=== PATIENT | male | born 1960 | race Caucasian/White ===

== ENCOUNTER → 2018-06-19 15:24 | Outpatient (CLI) | payer OTHER, SELFPAY ==
[2018-06-19 15:43] LABS: Hemoglobin 17.7 g/dL (13.5-17.5)
[2018-06-19 15:49] LABS: Hematocrit 50.6 % (41-53); Mean Corpuscular Hemoglobin 30.8 PG (26-34); Platelet Count 254 X10^3/uL (150-400); Red Blood Cell Count 5.76 X10^6/uL (4.5-5.9); Red Cell Distribution Width 12.5 % (11.6-14.8); White Blood Cell Count 6.2 X10^3/uL (4.5-11.0)
[2018-06-19 16:43] LABS: Vitamin D 25 Hydroxy (D3) 77.7 ng/mL (30.0-100.0)
[2018-06-19 16:56] LABS: Prostate Specific Antigen Scrn 0.698 ng/mL (0.1-4.0)
== END ==
PROVIDERS: Family Provider Family Medicine; PCP Student in an Organized Health Care Education/Training Program; Visit Provider Student in an Organized Health Care Education/Training Program
DX: E55.9 Vitamin D deficiency, unspecified (principal); D75.1 Secondary polycythemia; Z12.5 Encounter for screening for malignant neoplasm of prostate
CPT/HCPCS: 36415; 82306; 85027; G0103

== ENCOUNTER → 2019-11-24 15:41 | Outpatient (CLI) | payer OTHER, SELFPAY ==
[2019-11-24 16:52] LABS: BUN Creatinine Ratio 18.3 (6-22); Blood Urea Nitrogen 19 mg/dL (9-20); Calcium 9.4 mg/dL (8.4-10.2); Carbon Dioxide 24 mmol/L (22-32); Chloride 106 mmol/L (98-107); Cholesterol 139 mg/dL (140-199); Estimated Glomerular Filt Rate > 60.0 mL/min (>60); Glucose 94 mg/dL (80-110); HDL Cholesterol 37 mg/dL (40-60); HEMOLYSIS < 15 (0-50); LDL Cholesterol Calculated 78 mg/dL (<100); Potassium 4.6 mmol/L (3.4-5.1); Sodium 137 mmol/L (137-145); Triglycerides 121 mg/dL (35-150)
== END ==
PROVIDERS: PCP Student in an Organized Health Care Education/Training Program; Referring Provider Student in an Organized Health Care Education/Training Program; Visit Provider Student in an Organized Health Care Education/Training Program
DX: E78.5 Hyperlipidemia, unspecified (principal); I10 Essential (primary) hypertension
CPT/HCPCS: 36415; 80048; 80061

== ENCOUNTER → 2020-02-12 15:11 | Outpatient (CLI) | payer OTHER, SELFPAY ==
[2020-02-14 09:31] LABS: COVID19 Sendout Not Detected (Not Detect)
== END ==
PROVIDERS: PCP Student in an Organized Health Care Education/Training Program; Visit Provider Physician Assistant
DX: Z11.59 Encounter for screening for other viral diseases (principal)
CPT/HCPCS: 87635

== ENCOUNTER 2020-02-15 09:35 | Day surgery (SDC) | payer OTHER, SELFPAY ==
[2020-02-15 10:02] VITALS: BMI 25.1
[2020-02-15] MEDS: LACTATED RINGERS 1,000 ML 200 ML IV (10:21)
[2020-02-15 10:23] VITALS: BP 122/85; PULSE 77; RESP 16; TEMP 36.2; O2SAT 99
--- NOTE | 2020-02-15 11:19 | PM.HP.1 ---
History of Present Illness History of Present Illness Date Patient Seen: 02/15/20 Time Patient Seen: 11:20 Chief complaint: TXC Narrative: The patient presents for colorectal sreening. He had a previous colonoscopy 5 years ago that demonstrated an adenomatous polyp which was removed.. No personal or family history of colon cancer. On further history denies any recent gastrointestinal symptoms. No nausea, vomiting, abdominal pain, loss of appetite, unexplained weight loss, change in bowel habits, diarrhea, constipation, melena, hematochezia, or bright red blood per rectum He has a pacemaker but he is not pacemaker dependent. Patient History Medical History Acne (Chronic 1974) CAD (coronary artery disease) (Chronic 2008) Chicken pox (Resolved 1965) Colitis (Chronic 1982) Hayfever (Chronic 1973) Hypertension (Chronic 2005) IBS (irritable bowel syndrome) (Chronic 1982) Mumps (Resolved 1967) Pacemaker (Chronic 2008) Rosacea (Chronic 2008) Ventricular fibrillation (Chronic 2008) Surgical History Anesthesia (Resolved) History of angioplasty (Resolved 2008) Implantable cardioverter-defibrillator (ICD) in situ (Resolved 2008) Status post repair of hydrocele (Resolved 1987) Family & Social History Family History Brother Age: 78 Diabetes mellitus Brother Age: 75 Diabetes mellitus Heart disease Hypertension High cholesterol Wheelchair bound Child Age: 23 ADHD (attention deficit hyperactivity disorder) Child Age: 21 ADHD (attention deficit hyperactivity disorder) Child Age: 18 ADHD (attention deficit hyperactivity disorder) Father Diabetes mellitus Heart disease Hypertension Stroke Mother Hypertension Social History: household members spouse Tobacco & Substance use: Smoking Status Never smoker alcohol intake frequency 3 or more drinks per day Substance Use Type does not use Meds Home Medications and Allergies Home Medications Medication Instructions Recorded Confirmed Type [CALCIUM] Q DAY #0 01/31/12 11/24/19 History [VITAMIN D3] 1 tab PO Q DAY #0 01/31/12 02/15/20 History cetirizine 5 mg PO DAILY #0 01/31/12 02/15/20 History cyanocobalamin (vitamin B-12) 500 mcg PO QDAY #0 tab 02/17/16 02/15/20 History [Vitamin B-12] omeprazole 20 mg capsule,delayed 20 mg PO HS #90 cap 11/25/19 11/25/19 Rx release atorvastatin 40 mg tablet 40 mg PO HS #90 tab 12/01/19 02/15/20 Rx metoprolol succinate 50 mg See Rx Instructions .ROUTE 12/01/19 02/15/20 Rx tablet,extended release 24 hr .COMPLEX #180 tab lisinopril 10 mg tablet 10 mg PO DAILY #90 tab 12/21/19 02/15/20 Rx Allergies Allergy/AdvReac Type Severity Reaction Status Date / Time Penicillins [PENICILLINS] AdvReac Unknown HIVES Verified 11/24/19 14:58 Review of Systems Review of Systems Narrative: A 10 point review of systems is negative except as noted in the HPI Exam Vital Signs (past 8 hours): - 02/15/20 10:23 Temperature 97.1 F L Pulse Rate 77 Respiratory Rate 16 Blood Pressure 122/85 Pulse Oximetry 99 Oxygen Delivery Method Room Air Narrative Exam Narrative: General-no acute distress, well nourished HEENT-moist mucous membranes, no scleral icterus Neck-supple, no lymphadenopathy Chest- non labored respirations, clear to auscultation bilaterally Cardiac-regular rate no peripheral edema Abdomen-soft, nontender, non distended Extremities-warm, well perfused Neurological-alert and oriented, no focal deficits Assessment & Plan Assessment & Plan narrative: The patient requires colorectal screening and colonoscopy is recommended. Technical details were discussed. Risks, benefits, alternatives explained. Risks including but not limited to myocardial infarction, aspiration, bleeding, pain, missed lesion, incomplete examination, need for further radiographic studies, colonic perforation, and need for major abdominal surgery were discussed. All questions were answered to their satisfaction, and they are in agreement with this plan.
[2020-02-15] MEDS: fentaNYL 250 MCG/5 ML INJ IV (11:29)
[2020-02-15] MEDS: MIDAZOLAM 5 MG/5 ML VIAL IV (11:29)
--- NOTE | 2020-02-15 11:43 | PM.OP.ENDO ---
Operative Date/Time/Diagnoses Date of procedure: 02/15/20 Time of procedure: 11:43 Pre-op diagnosis: Screening colonoscopy Post-op diagnosis: same Procedure & Clinicians Study performed: Colonoscopy Same procedure as scheduled: Yes Indications: 59-year-old man history of adenomatous polyps here for routine screening Surgeon: Dhruv Lopez Procedure Notes SCOAP/Timeout: Performed Procedure in detail: Patient placed in left lateral recumbent position. Time out was performed. Procedural sedation was administered with Versed and Fentanyl. Examination began with a thorough inspection of the perianal area there was no evidence of fissures, fistulae, external hemorrhoids or cutaneous malignancy. The colonoscopy scope was then placed into the rectum the the lumen was insufflated with air. The scope was carefully advanced forward. Ultimately the cecum was intubated and confirmed by identification of the ileocecal valve, the appendiceal orifice and the confluence of the taenia. The scope was then slowly withdrawn examining colon thoroughly in all directions. In the rectum the rectal columns were identified and retroflexion of the scope was performed for inspection of the distal rectum and anal canal. The colonoscopy was notable for the followin. Quality of the preparation-good 2. No masses or polyps 3. Grade 1 internal hemorrhoids Scope withdrawal time: 6 Sedation minutes: 17 Findings: internal hemorrhoids Specimen(s): none sent Complications: none Impression: Normal colonoscopy Post-procedure Recommendations: Colonscopy in 10 years Disposition: same day surgery
[2020-02-15 11:48] VITALS: BP 97/67; PULSE 72; RESP 14; TEMP 36.2; O2SAT 96
[2020-02-15 11:53] VITALS: BP 96/69; PULSE 74; RESP 15; O2SAT 95
[2020-02-15 12:03] VITALS: BP 113/81; PULSE 80; RESP 18; O2SAT 98
[2020-02-15 12:09] VITALS: BP 116/81; PULSE 83; RESP 14; TEMP 36.6; O2SAT 98
[2020-02-15 12:15] VITALS: BP 116/83; PULSE 76; RESP 12; TEMP 36.6; O2SAT 98
== END 2020-02-15 12:30 | disposition home or self-care (01) ==
PROVIDERS: PCP Student in an Organized Health Care Education/Training Program; Referring Provider Surgery; Visit Provider Surgery
PROC: 0DJD8ZZ Inspection of Lower Intestinal Tract, Via Natural or Artificial Opening Endoscopic (ICD-10-PCS; CPT 45378; principal; 2020-02-15 10:45)
DX: Z12.11 Encounter for screening for malignant neoplasm of colon (principal); K64.0 First degree hemorrhoids
CPT/HCPCS: 45378; 99152; J2250; J3010

== ENCOUNTER → 2021-04-20 16:48 | Outpatient (CLI) | payer OTHER, SELFPAY ==
[2021-04-20 17:18] LABS: Hemoglobin 16.7 g/dL (13.5-17.5); Mean Corpuscular HGB Conc 34.8 % (30-36); Mean Corpuscular Hemoglobin 31.2 PG (26-34); Mean Corpuscular Volume 89.9 fL (80-100); Platelet Count 233 X10^3/uL (150-400); Red Blood Cell Count 5.34 X10^6/uL (4.5-5.9); Red Cell Distribution Width 12.5 % (11.6-14.8); White Blood Cell Count 6.1 X10^3/uL (4.5-11.0)
[2021-04-20 18:31] LABS: BUN Creatinine Ratio 19.1 (6-22); Blood Urea Nitrogen 18 mg/dL (9-20); Calcium 9.8 mg/dL (8.4-10.2); Carbon Dioxide 28 mmol/L (22-32); Chloride 102 mmol/L (98-107); Estimated Glomerular Filt Rate > 60.0 mL/min (>60); Glucose 88 mg/dL (80-110); HEMOLYSIS < 15 (0-50); Potassium 4.1 mmol/L (3.4-5.1); Sodium 139 mmol/L (137-145)
[2021-04-20 19:02] LABS: Prostate Specific Antigen Scrn 0.651 ng/mL (0.1-4.0)
== END ==
PROVIDERS: PCP Student in an Organized Health Care Education/Training Program; Referring Provider Student in an Organized Health Care Education/Training Program; Visit Provider Student in an Organized Health Care Education/Training Program
DX: D75.1 Secondary polycythemia (principal); I10 Essential (primary) hypertension; Z12.5 Encounter for screening for malignant neoplasm of prostate
CPT/HCPCS: 36415; 80048; 85027; G0103

== ENCOUNTER → 2022-03-19 15:48 | Outpatient (CLI) | payer OTHER, SELFPAY ==
--- NOTE | 2022-03-19 | DI.RAD.S_ITS ---
PROCEDURE: XR CHEST 2V INDICATIONS: PACE MAKER ENCOUNTER TECHNIQUE: 2 views of the chest were acquired. COMPARISON: None. FINDINGS: Surgical changes and devices: Left chest wall pulse generator with dual-chamber electrode leads in place. Lungs and pleura: Lung volumes are slightly low. No dense consolidation or pleural effusion. Mediastinum: Heart size is within normal limits. Bones and chest wall: No acute or suspicious osseous abnormality. IMPRESSION: Lung volumes are slightly low. No acute radiographic abnormality. Left chest wall pulse generator with dual-chamber electrode leads in place. Dictated by: Erasmo Boucher M.D. on 03/19/2022 at 17:10 Approved by: Erasmo Boucher M.D. on 03/19/2022 at 17:11
[2022-03-19 18:27] LABS: Add Manual Diff / Slide Review NO; Basophils Absolute Auto 0 /uL (0-100); Basophils Percent Auto 0.5 % (0-2); Eosinophils Absolute Auto 200 /uL (0-450); Eosinophils Percent Auto 2.2 % (2-4); Hematocrit 47.5 % (41-53); Hemoglobin 16.5 g/dL (13.5-17.5); Lymphocytes Absolute Auto 1500 /uL (1100-4500); Lymphocytes Percent Auto 18.2 % (25-40); Mean Corpuscular HGB Conc 34.6 % (30-36); Mean Corpuscular Hemoglobin 30.6 PG (26-34); Mean Corpuscular Volume 88.4 fL (80-100); Monocytes Absolute Auto 800 /uL (0-900); Monocytes Percent Auto 9.2 % (3-14); Neutrophils Absolute Auto 5900 /uL (1500-7000); Neutrophils Percent Auto 69.9 % (50-75); Platelet Count 260 X10^3/uL (150-400); Red Blood Cell Count 5.38 X10^6/uL (4.5-5.9); White Blood Cell Count 8.4 X10^3/uL (4.5-11.0)
[2022-03-19 18:39] LABS: Alanine Aminotransferase 39 IU/L (<50); Albumin 4.2 g/dL (3.5-5.0); Albumin Globulin Ratio 1.2 (1.0-2.8); Alkaline Phosphatase 86 U/L (38-126); Aspartate Aminotransferase 32 IU/L (17-59); BUN Creatinine Ratio 17.3 (6-22); Bilirubin Total 0.7 mg/dL (0.2-1.3); Blood Urea Nitrogen 17 mg/dL (9-20); C-Reactive Protein Quant < 0.5 mg/dL (<1.0); Calcium 9.2 mg/dL (8.4-10.2); Carbon Dioxide 27 mmol/L (22-32); Chloride 102 mmol/L (98-107); Estimated Glomerular Filt Rate > 60 mL/min (>60); Globulin 3.6 g/dL (1.7-4.1); Glucose 97 mg/dL (80-110); HEMOLYSIS < 15 (0-50); Potassium 4.6 mmol/L (3.4-5.1); Sodium 139 mmol/L (137-145); Total Protein 7.8 g/dL (6.3-8.2)
== END ==
PROVIDERS: PCP Student in an Organized Health Care Education/Training Program; Referring Provider Nurse Practitioner; Visit Provider Nurse Practitioner
DX: T82.9XXD Unspecified complication of cardiac and vascular prosthetic device, implant and graft, subsequent encounter (principal)
CPT/HCPCS: 36415; 71046; 80053; 85025; 86140; 87040

== ENCOUNTER → 2022-07-20 16:24 | Outpatient (CLI) | payer OTHER, SELFPAY ==
[2022-07-20 16:54] LABS: Cholesterol 137 mg/dL (140-199); HDL Cholesterol 38 mg/dL (40-60); LDL Cholesterol Calculated 85 mg/dL (<100); Triglycerides 70 mg/dL (35-150)
[2022-07-20 17:39] LABS: Creatinine Urine Random 49.5 mg/dL
[2022-07-20 17:40] LABS: TSH w/ Reflex to FT4 1.29 uIU/mL (0.47-4.68)
[2022-07-20 17:51] LABS: Microalbumin Urine Random < 0.6 mg/dL (0-1.6)
[2022-07-26 21:11] LABS: Prostate Specific Antigen Scrn 0.684 ng/mL (0.1-4.0)
== END ==
PROVIDERS: PCP Family Medicine; Referring Provider Family Medicine; Visit Provider Family Medicine
DX: E78.5 Hyperlipidemia, unspecified (principal); I10 Essential (primary) hypertension; I25.10 Atherosclerotic heart disease of native coronary artery without angina pectoris; M62.838 Other muscle spasm; Z12.5 Encounter for screening for malignant neoplasm of prostate
CPT/HCPCS: 36415; 80061; 82043; 82570; 84443; G0103

== ENCOUNTER → 2023-08-16 17:12 | Outpatient (CLI) | payer OTHER, SELFPAY ==
[2023-08-16 18:23] LABS: Add Manual Diff / Slide Review NO; Basophils Absolute Auto 0 /uL (0-100); Basophils Percent Auto 0.4 % (0-2); Eosinophils Absolute Auto 200 /uL (0-450); Eosinophils Percent Auto 1.8 % (2-4); Hemoglobin 17.3 g/dL (13.5-17.5); Lymphocytes Absolute Auto 1600 /uL (1100-4500); Lymphocytes Percent Auto 16.5 % (25-40); Mean Corpuscular HGB Conc 34.6 % (30-36); Mean Corpuscular Hemoglobin 31.6 PG (26-34); Mean Corpuscular Volume 91.2 fL (80-100); Monocytes Absolute Auto 700 /uL (0-900); Monocytes Percent Auto 7.9 % (3-14); Neutrophils Absolute Auto 7000 /uL (1500-7000); Neutrophils Percent Auto 73.4 % (50-75); Platelet Count 218 X10^3/uL (150-400); Red Blood Cell Count 5.49 X10^6/uL (4.5-5.9); Red Cell Distribution Width 12.9 % (11.6-14.8); White Blood Cell Count 9.5 X10^3/uL (4.5-11.0)
[2023-08-16 18:37] LABS: Alanine Aminotransferase 47 IU/L (<50); Albumin 4.3 g/dL (3.5-5.0); Albumin Globulin Ratio 1.4 (1.0-2.8); Alkaline Phosphatase 62 U/L (38-126); Aspartate Aminotransferase 45 IU/L (17-59); BUN Creatinine Ratio 19.2 (6-22); Blood Urea Nitrogen 19 mg/dL (9-20); Calcium 9.3 mg/dL (8.4-10.2); Carbon Dioxide 25 mmol/L (22-32); Chloride 105 mmol/L (98-107); Cholesterol 137 mg/dL (140-199); Estimated Glomerular Filt Rate > 60 mL/min (>60); Globulin 3.1 g/dL (1.7-4.1); Glucose 80 mg/dL (80-110); HDL Cholesterol 47 mg/dL (40-60); HEMOLYSIS 17 (0-50); LDL Cholesterol Calculated 79 mg/dL (<100); Potassium 4.8 mmol/L (3.4-5.1); Sodium 138 mmol/L (137-145); Total Protein 7.4 g/dL (6.3-8.2); Triglycerides 54 mg/dL (35-150)
[2023-08-16 18:50] LABS: Creatinine Urine Random 88.4 mg/dL
[2023-08-16 19:00] LABS: Microalbumin Urine Random < 0.6 mg/dL (0-1.6)
[2023-08-16 19:08] LABS: Prostate Specific Antigen Scrn 0.769 ng/mL (0.1-4.0); TSH w/ Reflex to FT4 1.31 uIU/mL (0.47-4.68)
[2023-08-17 06:01] LABS: Apolipoprotein B 72 mg/dL (<90)
== END ==
PROVIDERS: PCP Family Medicine; Referring Provider Family Medicine; Visit Provider Family Medicine
DX: I10 Essential (primary) hypertension (principal); E78.5 Hyperlipidemia, unspecified; I25.10 Atherosclerotic heart disease of native coronary artery without angina pectoris; K21.9 Gastro-esophageal reflux disease without esophagitis; Z12.5 Encounter for screening for malignant neoplasm of prostate
CPT/HCPCS: 36415; 80053; 80061; 82043; 82172; 82570; 83695; 84443; 85025; G0103

== ENCOUNTER → 2024-07-25 08:50 | Outpatient (CLI) | payer MEDICARE, OTHER, SELFPAY ==
[2024-07-25 10:09] LABS: Add Manual Diff / Slide Review NO; Basophils Absolute Auto 0 /uL (0-100); Basophils Percent Auto 0.5 % (0-2); Eosinophils Absolute Auto 100 /uL (0-450); Hematocrit 48.5 % (41-53); Hemoglobin 16.6 g/dL (13.5-17.5); Lymphocytes Absolute Auto 1000 /uL (1100-4500); Lymphocytes Percent Auto 21.5 % (25-40); Mean Corpuscular HGB Conc 34.3 % (30-36); Mean Corpuscular Hemoglobin 31.6 PG (26-34); Mean Corpuscular Volume 92.2 fL (80-100); Monocytes Absolute Auto 500 /uL (0-900); Neutrophils Absolute Auto 3000 /uL (1500-7000); Platelet Count 190 X10^3/uL (150-400); Red Blood Cell Count 5.26 X10^6/uL (4.5-5.9); Red Cell Distribution Width 12.9 % (11.6-14.8); White Blood Cell Count 4.6 X10^3/uL (4.5-11.0)
[2024-07-25 10:19] LABS: Creatinine Urine Random 148.36 mg/dL
[2024-07-25 10:24] LABS: Alanine Aminotransferase 32 IU/L (<50); Albumin 4.3 g/dL (3.5-5.0); Albumin Globulin Ratio 1.7 (1.0-2.8); Alkaline Phosphatase 58 U/L (38-126); Aspartate Aminotransferase 33 IU/L (17-59); BUN Creatinine Ratio 21.6 (6-22); Blood Urea Nitrogen 19 mg/dL (9-20); Calcium 9.5 mg/dL (8.4-10.2); Carbon Dioxide 26 mmol/L (22-32); Chloride 105 mmol/L (98-107); Cholesterol 128 mg/dL (140-199); Estimated Glomerular Filt Rate > 60 mL/min (>60); Globulin 2.5 g/dL (1.7-4.1); Glucose 119 mg/dL (80-110); HDL Cholesterol 47 mg/dL (40-60); HEMOLYSIS < 15 (0-50); LDL Cholesterol Calculated 72 mg/dL (<100); Potassium 5.1 mmol/L (3.4-5.1); Sodium 140 mmol/L (137-145); Total Protein 6.8 g/dL (6.3-8.2); Triglycerides 43 mg/dL (35-150)
[2024-07-25 10:25] LABS: Microalbumin Urine Random < 0.6 mg/dL (0-1.6)
[2024-07-25 10:55] LABS: Prostate Specific Antigen Scrn 0.795 ng/mL (0.1-4.0)
[2024-07-25 10:56] LABS: TSH w/ Reflex to FT4 0.78 uIU/mL (0.47-4.68)
[2024-07-26 08:11] LABS: Apolipoprotein B 63 mg/dL (<90)
== END ==
PROVIDERS: PCP Family Medicine; Referring Provider Family Medicine; Visit Provider Family Medicine
DX: Z95.810 Presence of automatic (implantable) cardiac defibrillator (principal); I25.10 Atherosclerotic heart disease of native coronary artery without angina pectoris; E78.5 Hyperlipidemia, unspecified; I10 Essential (primary) hypertension; Z86.79 Personal history of other diseases of the circulatory system; Z12.5 Encounter for screening for malignant neoplasm of prostate
CPT/HCPCS: 36415; 80053; 80061; 82043; 82172; 82570; 84443; 85025; G0103